=== PATIENT | female | born 1995 | race Caucasian/White ===

== ENCOUNTER 2023-06-23 18:42 | Observation (INO) ==
[2023-06-23 20:30] LABS: ABS Lymphocytes 0.4 10^3/uL (1.0-4.8); ABS Monocytes 0.9 10^3/uL (0.0-0.9); ABS Neutrophils 10.6 10^3/uL (1.5-7.6); ABS Nucleated RBC 0.01 10^3/ul; Eosinophil % 0.1 %; Hematocrit 37.6 % (35-45); Hemoglobin 13.2 g/dL (11.5-14.3); Lymphocyte % 3.4 %; Mean Corpuscular Hemoglobin 31.6 pg (27-33); Mean Corpuscular Hgb Conc 35.1 g/dL (31-36); Mean Corpuscular Volume 89.9 fL (80-97); Mean Platelet Volume 8.3 fL (7.5-11.2); Nucleated Red Blood Cells % 0.1 /100 WBC (0.0-0.4); Platelet Count 165 10^3/uL (150-450); Red Blood Count 4.18 10^6/uL (3.63-4.92); Red Cell Distribution Width 12.7 % (12-17)
[2023-06-23 20:50] LABS: Albumin 4.2 g/dL (3.2-5.2); Anion Gap 6 mmol/L (2-16); CO2 Carbon Dioxide 26 mmol/L (22-32); Calcium 9.4 mg/dL (8.6-10.3); Chloride 106 mmol/L (101-111); Potassium 4.3 mmol/L (3.5-5.0); Sodium 138 mmol/L (135-145)
[2023-06-23 20:55] LABS: HCG Pregnancy < 0.60 mIU/mL
[2023-06-23 20:55] LABS: Urine Appearance Cloudy; Urine Bilirubin Negative (Negative); Urine Blood Negative (Negative); Urine Color Yellow; Urine Glucose Negative (Negative); Urine Ketones Negative (Negative); Urine Nitrite Negative (Negative); Urine Protein Negative (Negative); Urine Specific Gravity 1.017 (1.002-1.030); Urine Urobilinogen Negative (Negative)
[2023-06-23 20:56] LABS: ALT 10 U/L (7-52); AST 12 U/L (13-39); Albumin/Globulin Ratio 1.6 (1-3); Alkaline Phosphatase 47 U/L (35-149); Blood Urea Nitrogen 7 mg/dL (6-24); Creatinine, Serum 0.83 mg/dL (0.51-0.95); Globulin 2.7 g/dL (2-4); Glucose 107 mg/dL (70-100); Lipase 38 U/L (11.0-82.0); Total Protein 6.9 g/dL (6.4-8.9); eGFR CKD-EPI 97.8 (>60)
[2023-06-23 20:58] LABS: Urine Bacteria Absent (Absent); Urine Red Blood Cell 1+(3-5/hpf) (Absent); Urine Squamous Epithelial Cell Present (Absent); Urine White Blood Cell 2+(11-20/hpf) (Absent)
[2023-06-23] MEDS ORDERED: Iohexol 300 (CONTRAST) 10 ML SDV IV ONE (21:57)
[2023-06-23] MEDS ORDERED: Lactated Ringers 1000 ml BAG 1,000 ML IV ONE (23:35)
[2023-06-23] MEDS ORDERED: Piperacillin/Tazobac 3.375 BAG 3.375 GM/100 ML BAG IV ONE (23:37)
[2023-06-23] MEDS ORDERED: D5W 1/2 NS 1000 ml BAG 1,000 ML IV SCH (23:45)
[2023-06-23] MEDS ORDERED: HYDROmorphone 1 MG/1 ML SYRINGE IV SLOW PU PRN (23:54)
[2023-06-23] MEDS ORDERED: Ondansetron 4 mg VIAL 2 MG/ML 2 ml VIAL IV PRN (23:54)
[2023-06-24] MEDS: Piperacillin/Tazobac 3.375 BAG 3.375 GM/100 ML BAG IV SCH ×2 (04:46→11:55)
[2023-06-24] MEDS ORDERED: HYDROmorphone 0.5 MG/0.5 ML SYRINGE IV SLOW PU PRN (07:26)
[2023-06-24] MEDS ORDERED: fentaNYL 250 mcg/5 ml 50 MCG/ML 5 ml VIAL (250 MCG) ONE (13:43)
[2023-06-24] MEDS ORDERED: Propofol 10 MG/ML 20 ML BTL ONE (13:43)
[2023-06-24] MEDS ORDERED: Lidocaine 2% PF 5 ML VIAL ONE (13:43)
[2023-06-24] MEDS ORDERED: Rocuronium 50 mg VIAL 10 mg/ml 5 ml VIAL (50 mg) ONE (13:44)
[2023-06-24] MEDS ORDERED: Midazolam 2 mg/2 ml VIAL 1 mg/ml 2 ml VIAL (2 mg) ONE (13:48)
[2023-06-24] MEDS ORDERED: Bupivacaine 0.25% SDV 30 ML ONE (14:19)
[2023-06-24] MEDS ORDERED: Ondansetron 4 mg VIAL 2 MG/ML 2 ml VIAL ONE (15:06)
[2023-06-24] MEDS ORDERED: Acetaminophen IV 1 GM/100ML 1,000 MG/100 ML BAG IV ONE (15:06)
[2023-06-24] MEDS ORDERED: Dexamethasone IV 4 MG/ML VIAL 1 ml VIAL ONE (15:06)
[2023-06-24] MEDS ORDERED: Phenylephrine 40 mcg/mL 10mL (400mcg) SYRINGE ONE (15:25)
[2023-06-24] MEDS ORDERED: fentaNYL 100 mcg/2 ml 50 MCG/ML VIAL IV PRN (16:28)
[2023-06-24] MEDS ORDERED: Ondansetron 4 mg VIAL 2 MG/ML 2 ml VIAL IV PRN (16:28)
[2023-06-24] MEDS ORDERED: Naloxone 0.4 mg VIAL 0.4 mg/ml 1 ml VIAL IV PRN (16:28)
[2023-06-24] MEDS ORDERED: HYDROmorphone 1 MG/1 ML SYRINGE IV PRN (16:28)
[2023-06-24 17:54] VITALS: BP 102/67
== END 2023-06-24 17:54 | disposition home or self-care (01) ==
LOC: ED 18:42 → EDHOLD 18:42 → AA 06-24 12:51
PROVIDERS: ADMIT Surgery Surgical Critical Care; ATTEND Surgery Surgical Critical Care